=== PATIENT | female | born 1980 | race Hispanic/Latino ===

== ENCOUNTER 2021-03-03 11:30 | Emergency (ER) | payer SELFPAY ==
[2021-03-03 11:53] VITALS: BP 119/67
--- NOTE | 2021-03-03 12:24 | Event Note ---
ED Screening Note Date of service: 03/03/21 Time: 12:22 ED Screening Note: This initial assessment/diagnostic orders/clinical plan/treatment(s) is/are subject to change based on patients health status, clinical progression and re- assessment by fellow clinical providers in the ED. Further treatment and workup at subsequent clinical providers discretion. Patient/guardian urged not to elope from the ED as their condition may be serious if not clinically assessed and managed. Initial orders include: 40-year-old female presents to the emergency room stating that she has history of panic attacks and she has been having panic attacks all day she denies any other medical complaints. She states that she is from [place]. She reports having one rajendra 2 days ago otherwise she denies any alcohol or drug use recently she appears anxious but in no distress
[2021-03-03 14:10] LABS: Hematocrit 34.7 % (30.3-42.9); Hemoglobin 12.4 gm/dl (10.1-14.3); Mean Corpuscular HGB Conc 36 % (30-34); Mean Corpuscular Volume 95 fl (79-97); Platelet Count 357 K/mm3 (140-440); Red Blood Count 3.67 M/mm3 (3.65-5.03); Red Cell Distribution Width 15.1 % (13.2-15.2)
[2021-03-03 14:37] LABS: BUN/Creatinine Ratio 11; Blood Urea Nitrogen 9 mg/dL (7-17); Hemolysis Index 3
[2021-03-03] MEDS ORDERED: ALPRAZolam 0.5 MG TAB PO ONE (16:05)
--- NOTE | 2021-03-03 16:05 | Emergency Department Report ---
ED Psych HPI - General Chief Complaint: Psych Stated Complaint: ARSALAN MENDEZ Time Seen by Provider: 03/03/21 15:52 Source: patient, EMS Mode of arrival: Ambulatory - History of Present Illness Initial Comments: Chief complaint: "I need someone to take me to a homeless nursing home." HPI: This is a 40-year-old female who lives in [place] with history of anxiety bipolar disorder schizophrenia and polysubstance abuse. Patient denies auditory hallucinations suicidal or homicidal ideation. She has anxiety. She denies depression. She wants to go home to [place]. However she missed a bus after surgical provided a take it. She had nursing home arranged at a [facility] advocacy group. Complaint: other (Anxiety) -: Gradual (1 day) History of same: Yes Quality: constant Improves With: none Worsens With: none Context: recent alcohol abuse, recent drug abuse, not taking psychiatric Associated Symptoms: other (Anxiety) Treatments Prior to Arrival: none - Related Data Allergies Allergy/AdvReac Type Severity Reaction Status Date / Time No Known Allergies Allergy Unverified 03/03/21 11:46 ED Review of Systems ROS: Stated complaint: ARSALAN EVAL Other details as noted in HPI Comment: All other systems reviewed and negative Constitutional: denies: fever, malaise Respiratory: denies: cough, shortness of breath Cardiovascular: denies: chest pain Gastrointestinal: denies: abdominal pain, nausea, vomiting Psychiatric: anxiety. denies: depression, auditory hallucinations, visual hallucinations, homicidal thoughts, suicidal thoughts ED Past Medical Hx - Past Medical History Previous Medical History?: Yes Hx Psychiatric Treatment: Yes (Bipolar disorder, anxiety disorder, schizophrenia) - Surgical History Past Surgical History?: No - Social History Smoking Status: Current Every Day Smoker Substance Use Type: Alcohol, Heroin, Marijuana, Methamphetamines, Other ED Physical Exam - General Limitations: No Limitations General appearance: alert, in no apparent distress - Head Head exam: Present: atraumatic, normocephalic - Eye Eye exam: Present: normal appearance - ENT ENT exam: Present: mucous membranes moist - Neck Neck exam: Present: normal inspection, full ROM - Respiratory Respiratory exam: Present: normal lung sounds bilaterally. Absent: respiratory distress, wheezes, rales, stridor - Cardiovascular Cardiovascular Exam: Present: regular rate, normal rhythm, normal heart sounds. Absent: systolic murmur, diastolic murmur, rubs, gallop - GI/Abdominal GI/Abdominal exam: Present: soft, normal bowel sounds. Absent: distended, tenderness, guarding, rebound - Extremities Exam Extremities exam: Present: normal inspection - Back Exam Back exam: Present: normal inspection - Neurological Exam Neurological exam: Present: alert, oriented X3 - Psychiatric Psychiatric exam: Present: normal affect, normal mood - Skin Skin exam: Present: warm, dry, intact, normal color. Absent: rash ED Course Vital Signs 03/03/21 11:50 Temperature 99.6 F Pulse Rate 106 H Respiratory 20 Rate Blood Pressure 119/67 O2 Sat by Pulse 99 Oximetry ED Medical Decision Making - Lab Data Result diagrams: 03/03/21 13:04 03/03/21 13:04 Laboratory Results - last 24 hr 03/03/21 03/03/21 13:04 13:04 WBC 7.3 RBC 3.67 Hgb 12.4 Hct 34.7 MCV 95 MCH 34 H MCHC 36 H RDW 15.1 Plt Count 357 Sodium 141 Potassium 4.1 Chloride 100.8 Carbon Dioxide 27 Anion Gap 17 BUN 9 Creatinine 0.8 Estimated GFR > 60 BUN/Creatinine Ratio 11 Glucose 91 Calcium 9.0 - Medical Decision Making Poor social situation due to polysubstance abuse. Charge nurse will attempt to arrange for [facility] card for transport to local shelters. Mrs. Mcfarlane does not currently have an acute life or limb threatening injury. She is not a harm to herself or others. She is discharged to self-care. Critical care attestation.: If time is entered above; I have spent that time in minutes in the direct care of this critically ill patient, excluding procedure time. ED Disposition Clinical Impression: Poor social situation, Polysubstance (excluding opioids) dependence Disposition: DC-01 TO HOME OR SELFCARE Is pt being admited?: No Does the pt Need Aspirin: No Condition: Stable [facility]
== END 2021-03-03 16:25 | disposition home or self-care (01) ==
LOC: ED 11:30
DX: F25.0 Schizoaffective disorder, bipolar type (principal); F41.9 Anxiety disorder, unspecified; F17.200 Nicotine dependence, unspecified, uncomplicated; F12.90 Cannabis use, unspecified, uncomplicated; F15.90 Other stimulant use, unspecified, uncomplicated; F11.90 Opioid use, unspecified, uncomplicated; F19.20 Other psychoactive substance dependence, uncomplicated; Z65.9 Problem related to unspecified psychosocial circumstances
CPT/HCPCS: 36415; 80048; 85027